=== PATIENT | female | born 1985 | race Caucasian/White ===

== ENCOUNTER 2016-09-05 22:54 | Emergency (ER) | payer OTHER ==
--- NOTE | ~2016-09-05 | CR63 ---
[facility]. [facility] A Service of [facility] & [facility] RADIOLOGY TEXT RESULTS PATIENT: LINN PEREZ LOCATION: SED : 87 UNIT #: [id number] AGE: [address]: JAVON LÓPEZ SEX: F ORDER DR: [id number] [address] [address] [id number] E MR#: [id number] Acc #: [id number] NAME: LINN PEREZ : 1985 SEX: F STUDY DATE/TIME: 09/06/2016 0:42 UNIT: SED ROOM: STUDY DESCRIPTION: CR Chest 2 View Attending Physician: Javon López Aprn Ordering Physician: Javon López Aprn Primary Care Physician: Primary Care Physician No MEDICAL IMAGING REPORT This report is preliminary unless electronic signature is present. EXAM PA and lateral chest INDICATIONS Chest pain on right side for 2 weeks. Comparison is 01/26/11. FINDINGS PA and lateral examination of the chest upright shows a good expansion of the parenchyma with a normal distribution of the pulmonary vascularity. There is no indication of congestion, effusion, infiltrate, tumor, or nodular density. The pleural reflections and diaphragmatic contours are normal. The cardiac silhouette and mediastinal anatomy is within normal limits. IMPRESSION Normal chest. Dictated by... Harris Smith M.D. THIS IS AN ELECTRONICALLY VERIFIED REPORT Harris Smith M.D. at 09/06/2016 3:37 AM PA/kierra TD: 09/06/2016 02:49 JOB #: [id number] MEDICAL IMAGING REPORT Page 1 of 1
[~2016-09-05 22:54] MED LIST: AMOXICILLIN PO; ANSAID100 MG PO; ATARAX PO; AUGMENTIN PO; BACTRIM DS TABL1 TAB PO; BCP; BENADRYL PO; CIPRODEX OTIC7.5 ML AD; DELSYM30 MG/5 ML PO; FAMOTIDINE PO; FERROUS SULFATE PO; FLAGYL PO; FLEXERIL10 MG PO; IBUPROFEN PO; KENALOG IN ORABA5 GM TOP; LEVAQUIN750 MG PO; MOTRIN600 MG PO; NO MEDICATIONS; NORCO 5/325 TAB1 TAB PO; ORUDIS75 M1 DOB; ORUDIS75 M1 PO; PHENERGAN DM; PHENERGAN PO; PRENATAL1 TA1 PO; PYRIDIUM PO; ROBITUSSIN A-C-S1 ML PO; ROBITUSSIN ALL118 ML PO; TRIAMCINOLONE AC1 GM EXT; ULTRAM PO; VIBRAMYCIN100 M1 PO; VICODIN 5/1 TAB 5/50 PO; VICODIN 5/500 T1 TAB PO; VICODIN PO; ZANTAC PO; ZITHROMAX PO; ZOFRAN ODT4 MG PO; ZOFRAN ODT4 MG/UDTAB PO; ZOFRAN PO
[2016-09-05] MEDS ORDERED: NO MEDICATIONS (23:19)
== END 2016-09-06 01:13 | disposition home or self-care (01) ==
LOC: SED 22:54
DX: M94.0 Chondrocostal junction syndrome [Tietze] (principal); F17.210 Nicotine dependence, cigarettes, uncomplicated; Z88.5 Allergy status to narcotic agent
CPT/HCPCS: 71020; 99283